=== PATIENT | female | born 1985 | race American Indian/Alaskan Native ===

== ENCOUNTER 2017-09-24 15:46 | Emergency (ER) | payer OTHER ==
[2017-09-24 16:05] VITALS: BP 106/73; PULSE 77; RESP 18; TEMP 98.4; O2SAT 100; BMI 19.0
--- NOTE | 2017-09-24 16:52 | ED PDOC ---
Arrival/HPI - General Chief Complaint: Abnormal Skin Integrity Time Seen by Provider: 09/24/17 16:47 Historian: Patient - History of Present Illness Narrative History of Present Illness (Text): 09/24/17 16:47 This 32 yo female presents to this ED c/o left 2nd finger burning sensation since this morning. Patient stated she has and same in the pat. She was Dx. herpes on that finger and she was told to take Acyclovir or similar ABX to prevent worsening of rash. Denies other complains. Past Medical History - Provider Review Nursing Documentation Reviewed: Yes - Psychiatric Hx Substance Use: No Family/Social History - Physician Review Nursing Documentation Reviewed: Yes Family/Social History: Other (noncontributory) Smoking Status: Never Smoked Hx Alcohol Use: Yes Frequency of alcohol use: Socially Hx Substance Use: No Allergies/Home Meds Allergies/Adverse Reactions: Allergies latex Allergy (Verified 09/24/17 16:04) ITCHING Review of Systems - Review of Systems Constitutional: Normal. absent: Fatigue, Weight Change, Fevers Eyes: Normal ENT: Normal Respiratory: Normal Cardiovascular: Normal Gastrointestinal: Normal Genitourinary Female: Normal Musculoskeletal: Other (left index finger with sensation of herpes) Skin: Normal Neurological: Normal Endocrine: Normal Hemo/Lymphatic: Normal Psychiatric: Normal Physical Exam Vital Signs Temp Pulse Resp BP Pulse Ox 09/24/17 15:58 98.4 F 77 18 106/73 100 Temperature: Afebrile Blood Pressure: Normal Pulse: Regular Respiratory Rate: Normal Appearance: Positive for: Well-Appearing, Non-Toxic, Comfortable Pain Distress: None Mental Status: Positive for: Alert and Oriented X 3 - Systems Exam Head: Present: Atraumatic, Normocephalic Mouth: Present: Moist Mucous Membranes Upper Extremity: Present: Normal Inspection, Normal ROM, NORMAL PULSES, Neurovascularly Intact, Capillary Refill < 2s. No: Tenderness, Swelling, Erythema Lower Extremity: Present: Normal Inspection, Normal ROM. No: Edema Neurological: Present: GCS=15, CN II-XII Intact, Speech Normal Skin: Present: Warm, Dry, Normal Color. No: Rashes Psychiatric: Present: Alert, Oriented x 3, Normal [facility]ight Medical Decision Making ED Course and Treatment: 09/24/17 16:53 Re-evaluation. Patient feels better. Discussed results and plan with patient who expresses understanding. All questions answered and there is agreement with the plan to discharge home with instructions. Patient stable for discharge. Return if symptoms persist or worsen. Patient came c/o a sensation of herpes on her left index finger. She has had similar symptoms in the past. I was not able to visualized vesicles. It may be developing at this time. I will order Valtrex as per patient request. Patient denies Re-evaluation Time: 16:53 Reassessment Condition: Re-examined, Unchanged Disposition/Present on Arrival - Present on Arrival Any Indicators Present on Arrival: No History of DVT/PE: No History of Uncontrolled Diabetes: No Urinary Catheter: No History of Decub. Ulcer: No History Surgical Site Infection Following: None - Disposition Have Diagnosis and Disposition been Completed?: Yes Diagnosis: Herpes Disposition: HOME/ ROUTINE Disposition Time: 16:53 Patient Plan: Discharge Patient Problems: Current Active Problems Problem Status Onset Herpes Acute Condition: GOOD Discharge Instructions (ExitCare): Oral Herpes Simplex Virus Infections (ED) Additional Instructions: Call private doctor for follow up visit. Take medication as instructed. Return to emergency if symptoms worsen. Do not touch your genital, mouth or other body part for at least 2 weeks. Prescriptions: Valacyclovir HCl [Valtrex] 1 gm PO TID #21 tablet Referrals: Alysa Guerrero DO [Primary Care Provider] - Follow up with primary Forms: [employer] (Faroese)
== END 2017-09-24 17:17 | disposition home or self-care (01) ==
LOC: ED 15:46
DX: B00.9 Herpesviral infection, unspecified (principal)